=== PATIENT | male | born 1955 | race Caucasian/White ===

== ENCOUNTER 2022-07-04 00:58 | Emergency (ER) | payer MEDICARE, MEDICAID, SELFPAY ==
[2022-07-04] VITALS (11 sets, daily range): BP systolic 116–145; BP diastolic 61–90; PULSE 87–109; RESP 16–24; TEMP 34.4–34.6; O2SAT 89–100
--- NOTE | 2022-07-04 00:59 | ECG_ITS ---
[facility] Test Date: 2022-07-04 Pat Name: Ulysses Linda Department: Room: Gender: Male Personal Carer: : 1955 Requested By: Kishor Grace Order Number: [id number] Lee MD: Yasmani Contreras M.D. Measurements Intervals [place] Rate: 109 P: 28 LA: 130 QRS: 28 QRSD: 97 T: 32 QT: 345 QTc: 466 Interpretive Statements SINUS TACHYCARDIA WITH OCCASIONAL SUPRAVENTRICULAR PREMATURE COMPLEXES POSSIBLE LEFT ATRIAL ENLARGEMENT [-0.1mV P-WAVE IN V1/V2] LEFT VENTRICULAR HYPERTROPHY AND ST-T CHANGE [VOLTAGE CRITERIA PLUS ST/T ABNORMALITY] No previous ECG available for comparison Electronically Signed On 07-04-2022 7:08:00 [employer] by Yasmani Contreras M.D. [id number]
--- NOTE | 2022-07-04 01:00 | XRR_ITS ---
PROCEDURE INFORMATION: Exam: XR Chest Exam date and time: 07/04/2022 1:02 AM Age: 66 years old Clinical indication: Shortness of breath; Patient HX: Resp failure. Arrived via EMS intubated in the field. Unable to obtain further history. ; Additional info: SOB TECHNIQUE: Imaging protocol: Radiologic exam of the chest. Views: 1 view. COMPARISON: No relevant prior studies available. FINDINGS: Tubes, catheters and devices: ETT is in place, the tip is about 4 cm above franklyn. Lungs: Moderate underlying COPD. Diffuse hazy alveolar-interstitial infiltrates with small effusion should be closely followed up. Pleural spaces: No pneumothorax. Heart/Mediastinum: The heart is normal size. Bones/joints: Unremarkable. XR/XR chest 1V portable [id number] IMPRESSION: 1. ETT in place. 2. Hazy areas of bilateral diffuse atelectasis, edema or pneumonia and effusions should be closely followed up. ARDS is also possible. 3. No evidence of pneumothorax.
--- NOTE | 2022-07-04 01:01 | W.ED.SOB ---
HPI - SOB/Dyspnea General: Chief Complaint: Shortness of Breath/Dyspnea Stated Complaint: respiratory distress Time Seen by Provider: 07/04/22 00:59 Source: EMS Mode of arrival: EMS Limitations: physical limitation History of Present Illness: HPI Narrative: 66-year-old male EMS was called out to 4 shortness of breath of the last 2 days they state when they arrived he was in severe distress but he was responsive was able to ambulate out to the ambulance states that his breathing got much worse was never able to get up pulse ox time and intubated him. Per EMS patient never goes to the hospital has no known medical issues he had no known pain no fever patient is currently intubated pulse ox is 96%. Review of Systems General: Reports: ROS unobtainable due to mental status PFSH ED PFSH: Medical History (Updated 07/04/22 @ 03:09 by Kishor Grace MD) No pertinent past medical history Social History (Updated 07/04/22 @ 01:02 by Kishor Grace MD) Substance/Drug Use: never Physical Exam Const: COMMON NORMALS: negative for patient oriented x3 GENERAL APPEARANCE: in distress and ill appearing OTHER: intubated HENMT: COMMON NORMALS: normocephalic and atraumatic HEAD & SCALP: normocephalic and atraumatic Eye: COMMON NORMALS: Equal, round and reactive pupils present and conjunctivae normal CONJUNCTIVA: Yes conjunctivae normal PUPIL: Yes Equal, round and reactive pupils present Neck/C-Spine: COMMON NORMALS: full ROM and supple Chest: COMMONS NORMALS: normal inspection of the chest and normal palpation of entire chest wall Resp: AUSCULTATION: rales OTHER: injubated Cardio: COMMON NORMALS: regular rate, regular rhythm and No murmurs present (Cardio) RATE: regular rate RHYTHM: regular rhythm GI: COMMON NORMALS: Normal to inspection, nondistended, normoactive bowel sounds present, Soft to palpation, non-tender and no masses PALPATION: Yes Soft to palpation Extremity: COMMON NORMALS: normal to inspection and full ROM Neuro: COMMON NORMALS: negative for patient oriented x3 Psych: COMMON NORMALS: negative for mental status grossly normal Skin: COMMON NORMALS: no rashes or lesions noted and no wounds GENERAL SKIN EXAM: no rashes or lesions noted Course Vital Signs: Vital signs: Vital Signs Pulse Rate 96 07/04/22 01:51 Respiratory Rate 16 07/04/22 01:51 Blood Pressure 135/90 07/04/22 01:03 Pulse Oximetry 96 07/04/22 01:51 Oxygen Delivery Me thod 07/04/22 01:51 Fraction of Inspir ed Oxygen 60 07/04/22 01:56 MDM - SOB/Dyspnea Medical Decision Making Patient presents here with respiratory failure he was intubated in the field patient does have an elevated BNP here along with CT that shows pulmonary edema versus pneumonia with pleural effusions no known history on patient per EMS he had not complained of any pain but when they arrived him his pulse ox in the 50s and able to only answer one-word questions he started on antibiotics his hemoglobin is 7 1 I did give him 1 unit of blood giving Lasix as well spoke to ICU physician at [facility] and will transfer there as we have no ICU bed availability here. Lab Data 07/04/22 01:00 07/04/22 01:00 Labs/Radiology: Radiology Impressions Chest X-Ray 07/04/22 01:00 IMPRESSION: 1. ETT in place. 2. Hazy areas of bilateral diffuse atelectasis, edema or pneumonia and effusions should be closely followed up. ARDS is also possible. 3. No evidence of pneumothorax. Chest CTA 07/04/22 01:47 IMPRESSION: 1. No PE. 2. Severe lung infiltrates which may be due to atelectasis, edema, aspiration, pneumonia and/or ARDS. 3. Large bilateral pleural effusions. No pneumothorax. 4. Bulky reactive mediastinal and hilar lymphadenopathy. 5. Underlying COPD with emphysema. 6. Numerous other findings above. For the above described findings, a 1-2 month follow-up is recommended. Laboratory Results WBC 22.4 10^3/uL (4.0-10.0) H 07/04/22 01:00 RBC 3.59 10^6/uL (4.1-5.3) L 07/04/22 01:00 Hgb 7.1 g/dL (11.7-16.6) L 07/04/22 01:00 Hct 26.1 % (42.0-52.0) L 07/04/22 01:00 MCV 72.7 fl (80-94) L 07/04/22 01:00 MCH 19.8 pg (28.0-34.0) L 07/04/22 01:00 MCHC 27.2 g/dL (30.0-36.0) L 07/04/22 01:00 RDW 20.0 % (12.1-15.1) H 07/04/22 01:00 Plt Count 581 10^3/cmm (130-400) H 07/04/22 01:00 MPV 10.4 fL (7.4-10.4) 07/04/22 01:00 Neut % (Auto) 86.6 % 07/04/22 01:00 Lymph % (Auto) 5.1 % 07/04/22 01:00 [place] % (Auto) 6.9 % 07/04/22 01:00 Eos % (Auto) 0.1 % 07/04/22 01:00 Baso % (Auto) 0.1 % 07/04/22 01:00 Neut # (Auto) 19.36 10^3/uL (1.8-7.7) H 07/04/22 01:00 Lymph # (Auto) 1.2 10^3/uL (0.8-4.8) 07/04/22 01:00 [place] # (Auto) 1.5 10^3/uL (0.2-0.9) H 07/04/22 01:00 Eos # (Auto) 0.0 10^3/uL (0.0-0.8) 07/04/22 01:00 Baso # (Auto) 0.0 10^3/uL (0.0-0.1) 07/04/22 01:00 Nucleated RBC % (auto) 0.2 % 07/04/22 01:00 Nucleated RBCs # 0.1 /100WBC 07/04/22 01:00 PT 19.20 SECONDS (12.1-14.9) H 07/04/22 01:00 INR 1.56 (0.8-1.2) H 07/04/22 01:00 Specimen Type Arterial 07/04/22 01:26 Sample Site Radial, left 07/04/22 01:26 ABG pH 7.26 (7.35-7.45) L 07/04/22 01:26 ABG pCO2 43.1 mmHg (35-45) 07/04/22 01:26 ABG pO2 89.5 mmHg (80.0-100.0) 07/04/22 01:26 ABG HCO3 19.3 mmol/L (22-26) L 07/04/22 01:26 ABG Base Excess -7.2 mmol/L (-2.0-2.0) L 07/04/22 01:26 Narciso Test Pos 07/04/22 01:26 Hematocrit 20.0 % (42-52) L 07/04/22 01:26 Hgb O2 Saturation 90.0 % (95-100) L 07/04/22 01:26 Carboxyhemoglobin 3.0 %THgb (0.4-20.1) 07/04/22 01:26 Methemoglobin 0.9 % (0.4-1.5) 07/04/22 01:26 Total Hemoglobin 6.5 g/dL (14-18) L 07/04/22 01:26 O2 Delivery Device Vent 07/04/22 01:26 FiO2 80.0 % 07/04/22 01:26 PEEP 5.0 cmH20 07/04/22 01:26 Instructional Design Technologist ID [email or web address] 07/04/22 01:26 Sodium 129 mmol/L (136-145) L 07/04/22 01:00 Potassium 4.1 mmol/L (3.5-5.1) 07/04/22 01:00 Chloride 90 mmol/L (98-107) L 07/04/22 01:00 Carbon Dioxide 13 mmol/L (22-29) L 07/04/22 01:00 Anion Gap 30.1 (5-19) H 07/04/22 01:00 BUN 23 mg/dL (8-23) 07/04/22 01:00 Creatinine 1.2 mg/dL (0.7-1.2) 07/04/22 01:00 GFR Calculation 60.6 mL/min (90-130) L 07/04/22 01:00 Glucose 114 mg/dL (65-115) 07/04/22 01:00 Calculated Osmolality 273 mOsm/kg (285-295) L 07/04/22 01:00 Lactic Acid 8.1 mmol/L (0.5-2.2) H* 07/04/22 01:25 Calcium 9.8 mg/dL (8.5-10.5) 07/04/22 01:00 Total Bilirubin 0.9 mg/dL (0.15-1.2) 07/04/22 01:00 AST 48 U/L (0-40) H 07/04/22 01:00 ALT 34 U/L (0-41) 07/04/22 01:00 Alkaline Phosphatase 102 U/L (40-130) 07/04/22 01:00 Creatine Kinase 93 U/L (39-308) 07/04/22 01:00 Troponin T Baseline 164 ng/L (0-15) H* 07/04/22 01:00 NT-Pro-B Natriuret Pep 62287 pg/mL (0-125) H 07/04/22 01:00 Total Protein 7.7 g/dL (6.6-8.7) 07/04/22 01:00 Albumin 3.8 g/dL (3.5-5.2) 07/04/22 01:00 Globulin 3.9 g/dL (1.3-4.6) 07/04/22 01:00 Urine Opiates Screen Negative ng/mL (Negative) 07/04/22 01:13 Ur Barbiturates Screen Negative ng/mL (Negative) 07/04/22 01:13 Ur Phencyclidine Scrn Negative ng/mL (Negative) 07/04/22 01:13 Ur Amphetamines Screen Positive ng/mL (Negative) H 07/04/22 01:13 U Benzodiazepines Scrn Negative ng/mL (Negative) 07/04/22 01:13 Urine Cocaine Screen Negative ng/mL (Negative) 07/04/22 01:13 U Marijuana (THC) Screen Negative ng/mL (Negative) 07/04/22 01:13 Influenza Type A Ag negative (Negative) 07/04/22 01:13 Influenza Type B Ag negative (Negative) 07/04/22 01:13 SARS-CoV-2 Ag (Rapid) negative (Negative) 07/04/22 01:13 Blood Type A Positive 07/04/22 01:25 Rho(D) Type Positive 07/04/22 01:25 Antibody Screen Negative 07/04/22 01:25 Crossmatch See Detail 07/04/22 01:25 EKG Data EKG 1: I personally reviewed and interpreted this EKG as follows: EKG Interpretation Date: 07/04/22 EKG interpretation time: 01:03 Interpretation: sinus tach hr [address] or t wave abnormalities qrs 97 qtc 409 Critical Care Time Critical Care Time: Critical Care Time: Yes Total Critical Care Time: 50 Attestation: The high probability of a clinically significant, sudden or life threatening deterioration of the patient's resp system(s) required my full and direct attention, intervention and personal management. The critical care time is as shown. This time is in addition to time spent performing any reported procedures but includes the following: [x] Data and vital sign review and interpretation [x] Patient assessment, examination and intervention [x] Documentation [x] Medication orders and management Discharge Plan Discharge Patient Disposition: Xfer Short-Term Hosp Clinical Impression: Acute respiratory failure with hypoxemia, Community acquired pneumonia, Congestive heart failure, Anemia Coding Level of Care Code ED Damaged Freight Inspector for Simon Webb
[2022-07-04 01:06] LABS: Basophils % 0.1 %; Eosinophils % 0.1 %; Hematocrit 26.1 % (42.0-52.0); Hemoglobin 7.1 g/dL (11.7-16.6); Lymphocytes # 1.2 10^3/uL (0.8-4.8); Lymphocytes % 5.1 %; Mean Corpuscular HGB Conc 27.2 g/dL (30.0-36.0); Mean Corpuscular Hemoglobin 19.8 pg (28.0-34.0); Mean Corpuscular Volume 72.7 fl (80-94); Mean Platelet Volume 10.4 fL (7.4-10.4); Monocytes # 1.5 10^3/uL (0.2-0.9); Monocytes % 6.9 %; Neutrophils # 19.36 10^3/uL (1.8-7.7); Neutrophils % 86.6 %; Nucleated Red Blood Cells # 0.1 /100WBC; Nucleated Red Blood Cells % 0.2 %; Platelet Count 581 10^3/cmm (130-400); Red Blood Count 3.59 10^6/uL (4.1-5.3); White Blood Count 22.4 10^3/uL (4.0-10.0)
[2022-07-04 01:21] LABS: INR 1.56 (0.8-1.2)
[2022-07-04 01:27] LABS: Creatine Phosphokinase 93 U/L (39-308)
[2022-07-04 01:37] LABS: Alanine Aminotransferase 34 U/L (0-41); Albumin Level 3.8 g/dL (3.5-5.2); Alkaline Phosphatase 102 U/L (40-130); Anion Gap 30.1 (5-19); Aspartate Amino Transferase 48 U/L (0-40); Blood Urea Nitrogen 23 mg/dL (8-23); Calcium 9.8 mg/dL (8.5-10.5); Carbon Dioxide 13 mmol/L (22-29); Chloride 90 mmol/L (98-107); Globulin 3.9 g/dL (1.3-4.6); Glomerular Filtration Rate 60.6 mL/min (90-130); Glucose 114 mg/dL (65-115); NT Pro B Type Natriuretic Pept 19005 pg/mL (0-125); Osmolality Calculated 273 mOsm/kg (285-295); Potassium 4.1 mmol/L (3.5-5.1); Sodium 129 mmol/L (136-145); Total Bilirubin 0.9 mg/dL (0.15-1.2); Total Protein 7.7 g/dL (6.6-8.7)
[2022-07-04 01:38] LABS: ABG PCO2 43.1 mmHg (35-45); ABG PH Result 7.26 (7.35-7.45); Base Excess ABG -7.2 mmol/L (-2.0-2.0); Blood Gas Allen Test Pos; Blood Gas Sample Site Radial, left; Blood Gas Sample Type Arterial; HCO3 ABG 19.3 mmol/L (22-26); Methemoglobin 0.9 % (0.4-1.5); Oxygen Device VENT; PO2 ABG 89.5 mmHg (80.0-100.0); Total Hemoglobin 6.5 g/dL (14-18)
[2022-07-04 01:45] LABS: Influenza A by IFA negative (Negative); Influenza B by IFA negative (Negative); SARS Covid-2 Antigen negative (Negative)
--- NOTE | 2022-07-04 01:47 | CTR_ITS ---
PROCEDURE INFORMATION: Exam: CTA Chest With Contrast Exam date and time: 07/04/2022 2:15 AM Age: 66 years old Clinical indication: Shortness of breath; Patient HX: Resp failure. Intubated in the field by EMS. Base troponin of 164. Bnp of 19k. ; Additional info: SOB TECHNIQUE: Imaging protocol: Computed tomographic angiography of the chest with contrast. 3D rendering (Not supervised by radiologist): MIP and/or 3D reconstructed images were created by the technologist. Radiation optimization: All CT scans at this facility use at least one of these dose optimization techniques: automated exposure control; mA and/or kV adjustment per patient size (includes targeted exams where dose is matched to clinical indication); or iterative reconstruction. Contrast material: OMNI 350; Contrast volume: 64 ml; Contrast route: INTRAVENOUS (IV); Other protocol: This patient has received 0 known CTs and 0 known cardiac nuclear medicine studies in the 12 months prior to the current study. COMPARISON: CR (CHEST, ) 07/04/2022 1:02 AM RADIATION DOSE METRICS: Total DLP (mGy-cm): 410.48 FINDINGS: Tubes, catheters and devices: ETT is in place. Tip is about 4 cm above franklyn. Pulmonary arteries: No main, lobar, or segmental PE identified. Aorta: Unremarkable. No aortic aneurysm. No aortic dissection. Lungs: Large areas of bilateral severe hazy alveolar-interstitial infiltrate are seen with areas of patchy consolidation. Underlying advanced COPD with bronchiectatic changes and diffuse lung interstitial scarring. Pleural spaces: Large oxzdm-mmjqzls-jooj-left pleural effusions. No pneumothorax. Heart: The heart is large. No pericardial effusion. Lymph nodes: Moderate likely reactive bulky mediastinal and hilar lymphadenopathy. Nodes measure up to about 3 cm. Liver: Large and nodular/cirrhotic appearing liver. Kidneys and ureters: Tiny right kidney stone. Bones/joints: Moderate spine DJD. Soft tissues: Unremarkable. CT/CT angio chest PE protcl [id number] IMPRESSION: 1. No PE. 2. Severe lung infiltrates which may be due to atelectasis, edema, aspiration, pneumonia and/or ARDS. 3. Large bilateral pleural effusions. No pneumothorax. 4. Bulky reactive mediastinal and hilar lymphadenopathy. 5. Underlying COPD with emphysema. 6. Numerous other findings above. For the above described findings, a 1-2 month follow-up is recommended.
[2022-07-04] MEDS: albuterol 2.5 mg/3 mL Neb INHALATION (01:50)
[2022-07-04] MEDS: sodium chloride 0.9% 1,000 ML 999 ML IV (01:51)
[2022-07-04] MEDS: FUROsemide 10 mg/mL SDV 4mL 40 MG IVP (01:57)
[2022-07-04 02:11] LABS: Troponin(5th) Baseline 164 ng/L (0-15)
[2022-07-04] MEDS: iohexol 350 mg/mL 500 mL Btl (per mL) IV (02:23)
[2022-07-04] MEDS: vancomycin 1,000 MG in sodium chloride 0.9% 250 ML 250 MG IV (02:35)
[2022-07-04] MEDS: piperacillin-tazobactam 3.375 GM in sodium chloride 0.9% (plus) 50 ML IV (02:35)
[2022-07-04 02:44] LABS: Lactic Sepsis W/Reflex 8.1 mmol/L (0.5-2.2)
[2022-07-04] MEDS: propofol 1,000 MG/100 ML INJ 1.89 MG IV (02:57)
[2022-07-04 03:01] LABS: Amphetamines Screen Urine Positive (Negative); Barbiturates Screen Urine Negative (Negative); Benzodiazepines Screen Urine Negative (Negative); Cocaine Screen Urine Negative (Negative); Opiate Screen Urine Negative (Negative); PCP Screen Urine Negative (Negative); THC Screen Urine Negative (Negative)
[2022-07-04 03:15] LABS: Reflex Lactate Order REFLEX LACTIC ORDERD
[2022-07-04 03:19] LABS: Add Urine Microscopic? YES; Bilirubin Urine Neg (Negative); Blood Urine Neg (Negative); Glucose Urine UA Norm (Normal); Ketones Urine 1+ (Negative); Leukocyte Esterase Urine Negative (Negative); Nitrate Urine Negative (Negative); Protein Urine 1+ (Negative); Specific Gravity, Urine 1.025 (1.005-1.030); Urine Appearance Clear (CLEAR); Urine Color Dark Yellow (Yellow); Urobilinogen Urine 1 mg/dL (Negative); pH Urine 5 (5-7)
[2022-07-04 03:20] LABS: Add Urine Culture? No; Amorphous Sediment Urine 1+ /hpf; Bacteria Urine TRACE /hpf; RBC Urine 0-4 /hpf (0-2); Renal Epithelial Cells Urine 0-2 /hpf; Squamous Epithelial Cell Urine 0-4 /hpf (0-5); WBC Urine 0-4 /hpf (0-5)
[2022-07-04 03:32] LABS: Troponin 5 2HR 128.3 ng/L (0-15); Troponin 5 2HR Delta -35.7 ABS# (0-10)
[2022-07-04] MEDS: sodium chloride 0.9% 250 ML IV (03:38)
[2022-07-04 03:39] LABS: Lactic Acid level (Lactate) 3.4 mmol/L (0.5-2.2)
[2022-07-04] MEDS: enoxaparin 60 mg/0.6 mL Syringe SUBCUT (03:40)
--- NOTE | 2022-07-04 04:38 | PC.NURSE ---
Attempted to call , Anali, x2 to inform of patient departing at this time. Went straight to automated message 'unavailable'
== END 2022-07-04 04:57 | disposition short-term general hospital (02) ==
PROVIDERS: Emergency Provider Emergency Medicine
DX: J96.01 Acute respiratory failure with hypoxia (principal); J44.0 Chronic obstructive pulmonary disease with (acute) lower respiratory infection; J18.9 Pneumonia, unspecified organism; D64.9 Anemia, unspecified; I11.0 Hypertensive heart disease with heart failure; I50.9 Heart failure, unspecified; Z20.822 Contact with and (suspected) exposure to COVID-19
CPT/HCPCS: 36430; 36600; 51702; 71045; 71275; 80053; 80306; 81001; 82550; 82805; 83605; 83880; 84484; 85025; 85610; 86850; 86900; 86920; 87040; 87070; 87205; 87426; 87804; 93005; 94002; 94640; 94799; 96365; 96366; 96367; 96372; 96375; 99291; J1650; J1940; J2543; J2704; J2930; J3010; J3370; J7030; J7050; J7613; P9016; Q9967

== ENCOUNTER 2024-04-15 13:54 | Inpatient (IN) | payer MEDICARE, MEDICAID, SELFPAY ==
[2024-04-15] VITALS (29 sets, daily range): BP systolic 104–160; BP diastolic 65–97; PULSE 101–130; RESP 10–40; TEMP 36.4–37.2; O2SAT 86–100
--- NOTE | 2024-04-15 14:10 | XR_ITS ---
WS: [id number] Exam: XR chest 1V portable [id number] Date/Time of Exam: 04/15/2024 2:19 PM Reason For Exam: dyspnea/cough Comparison 07/04/2022. Widespread interstitial and alveolar infiltrates are noted. Heart size top limits normal. The mediast inum is normal in contour. No pleural effusion or pneumothorax. Bony structures are intact. XR/XR chest 1V portable [id number] IMPRESSION: 1. Extensive bilateral interstitial and alveolar infiltrates. Interstitial pneu monia or pulmonary edema cannot be excluded however there is likely significant chronic interstitial change present. Short-term radiographic follow-up recomme nded.
--- NOTE | 2024-04-15 14:16 | ED_ITS ---
HPI - SOB/Dyspnea 2 General: Chief Complaint: Shortness of Breath/Dyspnea Stated Complaint: Resp Distrss Time Seen by Provider: 04/15/24 14:00 History of Present Illness: HPI Narrative: 68-[facility]. Patient is very lethargic patient has significant increased work of breathing. He usually wears oxygen but was not on it initially. On arrival here he was on nonrebreather at 10 L/min satting 86%. He denies chest pain or abdominal pain. He seems mildly confused. He was hospitalized in June 2022 at that time he came in in acute respiratory distress and was transferred due to lack of available beds at our facility Associated symptoms: Reports chest congestion; Deny abdominal pain, chest pain or fever(s) Related Data Home Medications Medication Instructions Recorded Confirmed albuterol sulfate 90 mcg/actuation 1 puff inhalation Q6H PRN 04/15/24 04/15/24 aerosol inhaler (Ventolin HFA) Shortness Of Breath Or Wheezing aspirin 81 mg tablet,delayed 81 mg PO DAILY 04/15/24 04/15/24 release atorvastatin 40 mg tablet 40 mg PO BEDTIME 04/15/24 04/15/24 clopidogrel 75 mg tablet 75 mg PO DAILY 04/15/24 04/15/24 fluticasone 250 mcg-salmeterol 50 1 inh inhalation BID 04/15/24 04/15/24 mcg/dose blistr powdr for inhalation furosemide 40 mg tablet 40 mg PO QAM 04/15/24 04/15/24 metoprolol tartrate 25 mg tablet 25 mg PO BID 04/15/24 04/15/24 nitroglycerin 0.4 mg sublingual See Rx Instructions .Route .COMPLEX 04/15/24 04/15/24 tablet pantoprazole 40 mg tablet,delayed 40 mg PO BID 04/15/24 04/15/24 release potassium chloride 20 mEq 40 meq PO DAILY 04/15/24 04/15/24 tablet,extended release(part/cryst) sacubitril 24 mg-valsartan 26 mg 1 tab PO BID 04/15/24 04/15/24 tablet (Entresto) sucralfate 100 mg/mL oral 10 ml PO Q12H 04/15/24 04/15/24 suspension sulfamethoxazole 800 1 tab PO DAILY 04/15/24 04/15/24 mg-trimethoprim 160 mg tablet Allergies Allergy/AdvReac Type Severity Reaction Status Date / Time No Known Allergies Allergy Verified 07/04/22 02:36 Review of Systems 2 Const: Reports: malaise; Denies: fever(s) or chills Card: Denies: chest pain Resp: Reports: dyspnea, wheezing and chest congestion GI: Denies: abdominal pain : Denies: dysuria, urinary frequency or urinary urgency Musc: Denies: neck pain or back pain Skin/Breast: Denies: rash PFSH ED 2 PFSH: Medical History COPD (chronic obstructive pulmonary disease) No pertinent past medical history Social History Substance/Drug Use: never Physical Exam 2 Const: GENERAL APPEARANCE: in distress and frail appearing O RIENTATION/CONSCIOUSNESS: Yes awake and Yes confused HENMT: COMMON NORMALS: normocephalic, atraumatic and hearing grossly normal bilaterally HEAD & SCALP: normocephalic and atraumatic Resp: EFFORT & INSPECTION: No able to speak in complete sentences, Yes respiratory distress, Yes labored, Yes uses accessory muscles and Yes audible wheezes AUSCULTATION: rhonchi and wheezes Cardio: COMMON NORMALS: regular rate, regular rhythm and No murmurs present (Cardio) RATE: regular rate RHYTHM: regular rhythm GI: COMMON NORMALS: Soft to palpation and No hepatosplenomegaly present A USCULTATION: Yes normoactive bowel sounds PALPATION: Yes Soft to palpation, No Tenderness to palpation present (GI), No Guarding due to palpation present (GI) and Yes No hepatosplenomegaly present Extremity: COMMON NORMALS: normal to inspection, capillary refill normal, no clubbing, cyanosis or edema, no calf tenderness and no pedal edema Skin: COMMON NORMALS: no rashes or lesions noted GENERAL SKIN EXAM: no rashes or lesions noted Course 2 Vital Signs: Vital signs: Vital Signs Temperature 97.0 F L 04/17/24 00:00 Pulse Rate 93 04/17/24 03:30 Respiratory Rate 23 H 04/17/24 03:30 Blood Pressure 84/53 04/17/24 03:30 Pulse Oximetry 94 04/17/24 03:30 Oxygen Delivery Me thod Heated High Flow 04/17/24 03:30 Oxygen Flow Rate 60 04/17/24 03:30 Fraction of Inspir ed Oxygen 60 04/17/24 02:05 MDM - SOB/Dyspnea Medical Decision Making Patient in severe respiratory distress on arrival with hypoxia improved with oxygen supplementation. He was started on BiPAP for work of breathing. Imaging shows the patient does not have a PE but does have significant interstitial pneumonia admission. He started on IV antibiotics. His troponin is elevated suspect this may be heart strain due to his overall condition suspect he has some underlying congestive heart failure. Reviewing his labs he also has some hepatic congestion from the heart failure which likely accounts for his transaminitis. He is also significantly anemic. He has been started on antibiotics discussed with hospitalist will admit. Medical Records I reviewed the patient's medical records. Lab Data I reviewed the patient's lab results. 04/17/24 03:07 04/17/24 03:07 Labs/Radiology: Radiology Impressions Chest X-Ray 04/15/24 14:10 IMPRESSION: 1. Extensive bilateral interstitial and alveolar infiltrates. Interstitial pneumonia or pulmonary edema cannot be excluded however there is likely significant chronic interstitial change present. Short-term radiographic follow- up recommended. Chest CTA 04/15/24 15:34 IMPRESSION: Diffuse extensive interstitial lung disease. I favor this to represent acute interstitial pneumonia superimposed upon some degree of chronic interstitial fibrosis Modified Barium Swallow 04/16/24 17:57 IMPRESSION: 1. No aspiration or penetration identified. A separate report with recommendations will follow from the speech therapy service. Laboratory Results WBC 14.88 10^3/uL (3.29-11.43) H 04/15/24 14:50 RBC 2.94 10^6/uL (3.85-5.65) L 04/15/24 14:50 Hgb 7.40 g/dL (11.27-16.99) L 04/15/24 14:50 Hct 25.7 % (37-53) L 04/15/24 14:50 MCV 87.4 fl (82-101) 04/15/24 14:50 MCH 25.2 pg (27-33) L 04/15/24 14:50 MCHC 28.8 g/dL (30-55) L 04/15/24 14:50 RDW 30.6 % (12.1-15.1) H 04/15/24 14:50 Plt Count 312 10^3/cmm (157-399) 04/15/24 14:50 MPV 9.8 fL (7.4-10.4) 04/15/24 14:50 Neut % (Auto) 84.9 % 04/15/24 14:50 Lymph % (Auto) 6.3 % 04/15/24 14:50 [place] % (Auto) 7.5 % 04/15/24 14:50 Eos % (Auto) 0.2 % 04/15/24 14:50 Baso % (Auto) 0.2 % 04/15/24 14:50 Neut # (Auto) 12.63 10^3/uL (1.8-7.7) H 04/15/24 14:50 Lymph # (Auto) 0.9 10^3/uL (0.8-4.8) 04/15/24 14:50 [place] # (Auto) 1.1 10^3/uL (0.2-0.9) H 04/15/24 14:50 Eos # (Auto) 0.0 10^3/uL (0.0-0.8) 04/15/24 14:50 Baso # (Auto) 0.0 10^3/uL (0.0-0.1) 04/15/24 14:50 Nucleated RBC % (auto) 0 % 04/15/24 14:50 Nucleated RBCs # 0.0 /100WBC 04/15/24 14:50 D-Dimer 1.68 ug/mLFEU (0-0.59) H 04/15/24 14:50 Specimen Type Arterial 04/15/24 14:10 Sample Site Brachial, left 04/15/24 14:10 ABG pH 7.39 (7.35-7.45) 04/15/24 14:10 ABG pCO2 23.7 mmHg (35-45) L 04/15/24 14:10 ABG pO2 105.0 mmHg (80.0-100.0) H 04/15/24 14:10 ABG PO2/FiO2 Ratio 161 04/15/24 14:10 ABG HCO3 14.2 mmol/L (22-26) L 04/15/24 14:10 ABG O2 Saturation 98.5 04/15/24 14:10 ABG Base Excess -9.7 mmol/L (-2.0-2.0) L 04/15/24 14:10 Narciso Test N/a 04/15/24 14:10 A-a O2 Gradient 41.6 mmHg (5-10) H 04/15/24 14:10 Hematocrit 24.0 % (42-52) L 04/15/24 14:10 Hgb O2 Saturation 95.2 % (95-100) 04/15/24 14:10 Carboxyhemoglobin 2.2 %THgb (0.4-20.1) 04/15/24 14:10 Methemoglobin 1.2 % (0.4-1.5) 04/15/24 14:10 Total Hemoglobin 7.8 g/dL (14-18) L 04/15/24 14:10 Sodium 140.0 mmol/L (131-143) 04/15/24 14:10 Potassium 3.9 mmol/L (3.5-5.0) 04/15/24 14:10 Glucose 145.0 mg/dL (70-115) H 04/15/24 14:10 Ionized Calcium 1.2 mmol/L (1.1-1.4) 04/15/24 14:10 O2 Delivery Device Bipap 04/15/24 14:10 FiO2 65.0 % 04/15/24 14:10 Cement Mason Maintenance ID glc 04/15/24 14:10 Sodium 139 mmol/L (136-145) 04/15/24 15:24 Potassium 4.2 mmol/L (3.5-5.1) 04/15/24 15:24 Chloride 101 mmol/L (98-107) 04/15/24 15:24 Carbon Dioxide 16 mmol/L (22-29) L 04/15/24 15:24 Anion Gap 26.2 (5-19) H 04/15/24 15:24 BUN 31 mg/dL (8-23) H 04/15/24 15:24 Creatinine 1.2 mg/dL (0.7-1.2) 04/15/24 15:24 GFR Calculation 60.2 mL/min (90-130) L 04/15/24 15:24 Glucose 156 mg/dL (65-115) H 04/15/24 15:24 Calculated Osmolality 298 mOsm/kg (285-295) H 04/15/24 15:24 Lactic Acid Cancelled 04/15/24 14:50 Lactic Acid (Sepsis) 9.5 mmol/L (0.5-2.2) H* 04/15/24 15:24 Calcium 8.5 mg/dL (8.5-10.5) 04/15/24 15:24 Magnesium 1.9 mg/dL (1.7-2.3) 04/15/24 15:24 Total Bilirubin 0.9 mg/dL (0.15-1.2) 04/15/24 15:24 AST 343 U/L (0-40) H 04/15/24 15:24 ALT 251 U/L (0-41) H 04/15/24 15:24 Alkaline Phosphatase 123 U/L (40-130) 04/15/24 15:24 Creatine Kinase 189 U/L (39-308) 04/15/24 15:24 Troponin T Baseline 548 ng/L (0-15) H* 04/15/24 15:24 Troponin T 120 Minute 639.1 ng/L (0-15) H 04/15/24 17:35 Delta Troponin T 91.1 ABS# (0-10) H* 04/15/24 17:35 Total Protein 6.1 g/dL (6.6-8.7) L 04/15/24 15:24 Albumin 3.3 g/dL (3.5-5.2) L 04/15/24 15:24 Globulin 2.8 g/dL (1.3-4.6) 04/15/24 15:24 Hepatitis A IgM Ab Non-reactive (Nonreactive) 04/15/24 15:44 Hep Bs Antigen Non-reactive (Nonreactive) 04/15/24 15:44 Hep B Core IgM Ab Non-reactive (Nonreactive) 04/15/24 15:44 Hepatitis C Antibody Non-reactive (Nonreactive) 04/15/24 15:44 All radiology interpretation(s) finalized by discharge Critical Care Time 2 Critical Care Time: Critical Care Time: Yes Total Critical Care Time: 40 Attestation: The high probability of a clinically significant, sudden or life threatening deterioration of the patient's cardiovascular respiratory system(s) required my full and direct attention, intervention and personal management. The critical care time is as shown. This time is in addition to time spent performing any reported procedures but includes the following: [x] Data and vital sign review and interpretation [x] Patient assessment, examination and intervention [x] Documentation [x] Medication orders and management Discharge Plan Discharge Patient Disposition: Admitted As Inpatient Admit Provider: Johan Wray Clinical Impression: Acute and chronic respiratory failure with hypoxia, Transaminitis, Lactic acidosis, Acute interstitial pneumonia, Acute exacerbation of chronic obstructive airways disease, Elevated troponin I level, Anemia Condition: Coding Level of Care Code ED Chemist Intern for Simon Webb
[2024-04-15] MEDS: ipratropium-albuterol 3 mL Neb INHALATION ×2 (14:34→20:02)
[2024-04-15] MEDS: dexamethasone 10 mg/mL INJ IM (14:37)
[2024-04-15 14:45] LABS: ABG PCO2 23.7 mmHg (35-45); ABG PH Result 7.39 (7.35-7.45); Alveolar-Arterial Oxygen Gradi 41.6 mmHg (5-10); Base Excess ABG -9.7 mmol/L (-2.0-2.0); Blood Gas Operator Identificat glc; Blood Gas Sample Site Brachial, left; Blood Gas Sample Type Arterial; Carboxyhemoglobin 2.2 %THgb (0.4-20.1); HCO3 ABG 14.2 mmol/L (22-26); HGB O2 Sat 95.2 % (95-100); Ionized Calcium Level - ABG 1.2 mmol/L (1.1-1.4); Methemoglobin 1.2 % (0.4-1.5); Oxygen Device BIPAP; Oxygen Saturation ABG 98.5; PO2 FiO2 Ratio Arterial Blood 161; Potassium Level - ABG 3.9 mmol/L (3.5-5.0); Total Hemoglobin 7.8 g/dL (14-18)
--- NOTE | 2024-04-15 14:53 | ECG_ITS ---
[facility] Test Date: 2024-04-15 Pat Name: Ulysses Linda Department: Room: Gender: Male Assembler Tester: : 1955 Requested By: Checo Chan Order Number: [id number] Reading MD: KATHLEEN JAQUEZ Measurements Intervals [place] Rate: 122 P: 47 LA: 127 QRS: 3 QRSD: 87 T: 47 QT: 285 QTc: 407 Interpretive Statements SINUS TACHYCARDIA NONSPECIFIC ST & T-WAVE ABNORMALITY ABNORMAL RHYTHM ECG Compared to ECG 07/04/2022 01:03:55 T-wave abnormality now present Left ventricular hypertrophy no longer present ST (T wave) deviation no longer present Electronically Signed On 04-16-2024 17:28:42 SURGERY CENTER ADMINISTRATOR by KATHLEEN JAQUEZ [id number]
[2024-04-15] MEDS: FUROsemide 10 mg/mL SDV 10mL 60 MG IVP (15:03)
[2024-04-15 15:11] LABS: Basophils % 0.2 %; Eosinophils % 0.2 %; Hematocrit 25.7 % (37-53); Lymphocytes # 0.9 10^3/uL (0.8-4.8); Lymphocytes % 6.3 %; Mean Corpuscular HGB Conc 28.8 g/dL (30-55); Mean Corpuscular Hemoglobin 25.2 pg (27-33); Mean Corpuscular Volume 87.4 fl (82-101); Mean Platelet Volume 9.8 fL (7.4-10.4); Monocytes # 1.1 10^3/uL (0.2-0.9); Monocytes % 7.5 %; Neutrophils # 12.63 10^3/uL (1.8-7.7); Neutrophils % 84.9 %; Nucleated Red Blood Cells % 0 %; Platelet Count 312 10^3/cmm (157-399); Red Blood Count 2.94 10^6/uL (3.85-5.65); Red Cell Distribution Width 30.6 % (12.1-15.1); White Blood Count 14.88 10^3/uL (3.29-11.43)
[2024-04-15 15:16] LABS: D Dimer 1.68 ug/mLFEU (0-0.59); Slide Review Slide Review Perform
--- NOTE | 2024-04-15 15:34 | CTR_ITS ---
PROCEDURE INFORMATION: Exam: CTA Chest With Contrast Exam date and time: 04/15/2024 4:26 PM Age: 68 years old Clinical indication: Dyspnea; Additional info: Dyspnea tachycardia TECHNIQUE: Imaging protocol: Computed tomographic angiography of the chest with contrast. Exam focused on the arteries. 3D rendering (Not supervised by radiologist): MIP and/or 3D reconstructed images were created by the technologist. Radiation optimization: All CT scans at this facility use at least one of these dose optimization techniques: automated exposure control; mA and/or kV adjustment per patient size (includes targeted exams where dose is matched to clinical indication); or iterative reconstruction. Contrast material: OMNIPAQUE 350; Contrast volume: 80 ml; Contrast route: INTRAVENOUS (IV); COMPARISON: CT angio chest PE protcl [id number] 07/04/2022 2:15 AM RADIATION DOSE METRICS: Total DLP (mGy-cm): 219.54 FINDINGS: Pulmonary arteries: Normal. No pulmonary emboli. Aorta: Unremarkable. No aortic aneurysm. No aortic dissection. Lungs: Both lungs demonstrate diffuse interstitial infiltrate that appears to be evenly distributed between upper and lower lobes zones. I see no dense consolidation or mass. Pleural spaces: Unremarkable. No pneumothorax. No pleural effusion. Heart: Unremarkable. No cardiomegaly. No pericardial effusion. Lymph nodes: Unremarkable. No enlarged lymph nodes. Bones/joints: Unremarkable. No acute fracture. Soft tissues: Unremarkable. CT/CT angio chest PE protcl [id number] IMPRESSION: Diffuse extensive interstitial lung disease. I favor this to represent acute interstitial pneumonia superimposed upon some degree of chronic interstitial fibrosis
--- NOTE | 2024-04-15 15:39 | PC.PHAR ---
Pt is on bipap. Med rec completed from current med list filled here at [facility] Main pharmacy. last fill dates and days supply entered in pharmacy notes.
[2024-04-15 15:50] LABS: Alanine Aminotransferase 251 U/L (0-41); Albumin Level 3.3 g/dL (3.5-5.2); Alkaline Phosphatase 123 U/L (40-130); Anion Gap 26.2 (5-19); Aspartate Amino Transferase 343 U/L (0-40); Blood Urea Nitrogen 31 mg/dL (8-23); Calcium 8.5 mg/dL (8.5-10.5); Carbon Dioxide 16 mmol/L (22-29); Chloride 101 mmol/L (98-107); Creatine Phosphokinase 189 U/L (39-308); Globulin 2.8 g/dL (1.3-4.6); Glomerular Filtration Rate 60.2 mL/min (90-130); Glucose 156 mg/dL (65-115); Magnesium 1.9 mg/dL (1.7-2.3); Osmolality Calculated 298 mOsm/kg (285-295); Potassium 4.2 mmol/L (3.5-5.1); Sodium 139 mmol/L (136-145); Total Bilirubin 0.9 mg/dL (0.15-1.2); Total Protein 6.1 g/dL (6.6-8.7); Troponin(5th) Baseline 548 ng/L (0-15)
[2024-04-15 16:12] LABS: Lactic Acid level (Lactate) 9.5 mmol/L (0.5-2.2)
[2024-04-15] MEDS: iohexol 350 mg/mL 500 mL Btl (per mL) IV (16:33)
[2024-04-15] MEDS: levofloxacin-dextrose 5 % 750 MG/150 ML PREMIX 100 MG IV (16:46)
--- NOTE | 2024-04-15 16:59 | ECG_ITS ---
[facility] Date: 2024-04-15 Pat Name: Ulysses Linda Department: Room: Gender: Male Grey Percher: : 1955 Requested By: Checo Chan Order Number: [id number] Reading MD: KATHLEEN JAQUEZ Measurements Intervals [place] Rate: 132 P: 54 VT: 113 QRS: 4 QRSD: 94 T: 54 QT: 260 QTc: 386 Interpretive Statements SINUS TACHYCARDIA WITH SHORT VT INTERVAL WITH OCCASIONAL VENTRICULAR PREMATURE COMPLEXES LEFT VENTRICULAR HYPERTROPHY AND ST-T CHANGE [VOLTAGE CRITERIA PLUS ST/T ABNORMALITY] Compared to ECG 04/15/2024 14:53:50 Ventricular premature complex(es) now present Short VT interval now present Left ventricular hypertrophy now present ST (T wave) deviation now present T-wave abnormality no longer present Electronically Signed On 04-16-2024 18:10:36 HIGH SCHOOL COACH by KATHLEEN JAQUEZ [id number]
--- NOTE | 2024-04-15 17:44 | ECG_ITS ---
[facility] Test Date: 2024-04-15 Pat Name: Ulysses Linda Department: Room: Gender: Male Seam Checker: : 1955 Requested By: Checo Chan Order Number: [id number] Reading MD: KATHLEEN JAQUEZ Measurements Intervals [place] Rate: 128 P: 65 SC: 96 QRS: 14 QRSD: 92 T: 32 QT: 262 QTc: 382 Interpretive Statements SINUS TACHYCARDIA WITH SHORT SC INTERVAL WITH OCCASIONAL VENTRICULAR PREMATURE COMPLEXES LEFT VENTRICULAR HYPERTROPHY AND ST-T CHANGE [VOLTAGE CRITERIA PLUS ST/T ABNORMALITY] Compared to ECG 04/15/2024 16:59:16 No significant changes Electronically Signed On 04-16-2024 18:10:24 INDUSTRIAL CUSTODIAN by KATHLEEN JAQUEZ [id number]
[2024-04-15] MEDS: enoxaparin 80 mg/0.8 mL Syringe 70 MG SUBCUT (18:12)
[2024-04-15 18:16] LABS: Troponin 5 2HR 639.1 ng/L (0-15); Troponin 5 2HR Delta 91.1 ABS# (0-10)
--- NOTE | 2024-04-15 18:32 | PC.NURSE ---
Addendum entered by Aydee Ramos RN 04/15/24 18:47: PATIENT STATES THAT HE IS THIRSTY. NURSE EXPLAINS THAT WE ARE GETTING READY TO TAKE PATIENT TO ICU AND BIPAP WOULD BE REMOVED AND HE WOULD BE ABLE TO DRINK FOR A FEW MINUTES DURING THAT TIME. PATIENT VERBALIZED UNDERSTANDING. PATIENT ASKED IF HE HAD ANY FURTHER NEEDS BEFORE ARRIVAL TO ICU. PATIENT DENIES NEEDS. PATIENT URINAL AT BEDSIDE, UA COLLECTED AND URINAL EMPTIED. PATIENT MADE COMFORTABLE IN BED. Original Note: PATIENT STATE
--- NOTE | 2024-04-15 18:44 | USCV_ITS ---
Ulysses Linda Age: 68 Gender: M : 1955 Exam Date: 04/15/2024 21:00 Ordering Phys: Johan Wray MD Technologist: OLIVER [place] [facility] [place] nstemi SOB, O2-dependent presenting ER with hypoxia 86% BP: 160 / 91 HR: 99 Rhythm: Sinus Technical Quality: Adequate MEASUREMENTS (Male / Female) Normal Values 2D ECHO LV Diastolic Diameter PLAX 4.3 cm 4.2 - 5.9 / 3.9 - 5.3 cm IVS Diastolic Thickness 1.3 cm 0.6 - 1.0 / 0.6 - 0.9 cm IVS Systolic Thickness 1.5 cm LVPW Diastolic Thickness 1.2 cm 0.6 - 1.0 / 0.6 - 0.9 cm LVPW Systolic Thickness 1.3 cm LVOT Diameter 1.9 cm LV Ejection Fraction 2D Teich 36.0 % LV Ejection Fraction MOD 4C 14.7 % LV Ejection Fraction MOD 2C 34.2 % LV Ejection Fraction 2C AL 35.1 % LA Diameter 3.2 cm Aorta at Sinotubular Diameter 2.6 cm IVC Diameter 2.1 cm M-MODE LA Ao Ratio MM 1.0 AV Cusp Separation MM 0.8 cm DOPPLER AV Peak Velocity 263.3 cm/s LVOT Peak Velocity 59.0 cm/s AV Area Cont Eq vti 0.4 cm squared AV Area Cont Eq pk 0.6 cm squared MV Peak Velocity 79.0 cm/s MV Area PHT 5.6 cm squared Mitral E to A Ratio 1.0 TV Peak Velocity 289.3 cm/s TR Peak Velocity 402.0 cm/s TR Peak Gradient 64.6 mmHg TV Peak E Velocity 47.0 cm/s Right Atrial Pressure 10.0 mmHg Pulmonary Artery Systolic Pressu 74.6 mmHg PV Peak Velocity 62.0 cm/s FINDINGS Left Ventricle Diffuse hypokinesia of the left ventricle with an ejection fraction of around 30%.mild left ventricular hypertrophy. Right Ventricle The right ventricle is normal in size and function. Right Atrium The right atrium is normal in size. Left Atrium Mildly increased left atrial size. Mitral Valve Mild mitral annular calcification. Mild mitral valve regurgitation. Aortic Valve Moderate aortic valve calcification. Mild aortic valve regurgitation. Severe low gradient aortic valve stenosis, mean gradient 15.3 mmHg, MARGA 0.4 cm squared. Tricuspid Valve Moderate eccentric tricuspid valve regurgitation. Moderately severe pulmonary hypertension with an estimated pulmonary artery peak systolic pressure of 75 mmHg Pulmonic Valve Pulmonic valve not well visualized. Pericardium Normal pericardium without effusion. Aorta Normal ascending aorta dimension. IVC Normal IVC dimension with <50% respiratory change of the inferior vena cava. CONCLUSIONS Diffuse hypokinesia of the left ventricle with an ejection fraction of around 30%.( visual). Mild left ventricular hypertrophy. Mildly increased left atrial size. Type II diastolic dysfunction. Moderate aortic valve calcification. Mild aortic valve regurgitation. Severe low gradient aortic valve stenosis, mean gradient 15.3 mmHg, MARGA 0.4 cm squared Moderate eccentric tricuspid valve regurgitation. Moderately severe pulmonary hypertension with an estimated pulmonary artery peak systolic pressure of 75 mmHg Mild mitral annular calcification. Mild mitral valve regurgitation. No similar previous studies are available for comparison Dr Jeffrey Hollingsworth MD [facility] (Electronically Signed) Final Date: 17 April 2024 07:00 S
[2024-04-15 18:58] LABS: Bilirubin Urine Negative (Negative); Blood Urine Negative (Negative); Glucose Urine UA Negative (Normal); Ketones Urine Negative (Negative); Leukocyte Esterase Urine Negative (Negative); Nitrate Urine Negative (Negative); Protein Urine Negative (Negative); Specific Gravity, Urine 1.011 (1.005-1.030); Urine Appearance Clear (CLEAR); Urine Color Yellow (Yellow); pH Urine 6.5 (5-7)
[2024-04-15 19:01] LABS: Add Urine Microscopic? YES; Bacteria Urine None Seen /hpf; Hyaline Casts Urine 18.61 /lpf; RBC Urine 0-2 /hpf (0-2); Squamous Epithelial Cell Urine 0-5 /hpf (0-5); WBC Urine 0-5 /hpf (0-5)
[2024-04-15 19:03] LABS: Add Urine Culture? No; UA Slide Review UA Slide Review Perf
--- NOTE | 2024-04-15 19:06 | P.HP_ITS ---
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 He is found to have sinus tachycardia, lactic acid of 9.5, with tachypnea in the 30s-40s, as well as baseline troponin 548. Chest x-ray and CTA were obtained. Chest CTA without PE, with diffuse extensive interstitial lung disease, favoring presentation of interstitial pneumonia superimposed on some degree of chronic interstitial fibrosis. Review of Systems 2 Const: Denies: fever(s), chills, body aches or malaise ENMT: Denies: throat pain Card: Denies: chest pain, edema, pre-syncope or dyspnea on exertion Resp: Reports: dyspnea and non-productive cough; Denies: hemoptysis GI: Denies: abdominal pain, nausea, vomiting, diarrhea, constipation, hematochezia or melena : Denies: flank pain, difficulty urinating, urinary frequency or hematuria Musc: Denies: back pain, joint swelling or joint redness Skin/Breast: Denies: rash Neuro: Denies: headache(s) Medications/Allergies Home Medications Medication Instructions Recorded Confirmed Last Taken Type albuterol sulfate 90 mcg/actuation 1 puff inhalation Q6H PRN 04/15/24 04/15/24 Unknown History aerosol inhaler (Ventolin HFA) Shortness Of Breath Or Wheezing aspirin 81 mg tablet,delayed 81 mg PO DAILY 04/15/24 04/15/24 Unknown History release atorvastatin 40 mg tablet 40 mg PO BEDTIME 04/15/24 04/15/24 Unknown History clopidogrel 75 mg tablet 75 mg PO DAILY 04/15/24 04/15/24 Unknown History fluticasone 250 mcg-salmeterol 50 1 inh inhalation BID 04/15/24 04/15/24 Unknown History mcg/dose blistr powdr for inhalation furosemide 40 mg tablet 40 mg PO QAM 04/15/24 04/15/24 Unknown History metoprolol tartrate 25 mg tablet 25 mg PO BID 04/15/24 04/15/24 Unknown History nitroglycerin 0.4 mg sublingual See Rx Instructions .Route .COMPLEX 04/15/24 04/15/24 Unknown History tablet pantoprazole 40 mg tablet,delayed 40 mg PO BID 04/15/24 04/15/24 Unknown History release potassium chloride 20 mEq 40 meq PO DAILY 04/15/24 04/15/24 Unknown History tablet,extended release(part/cryst) sacubitril 24 mg-valsartan 26 mg 1 tab PO BID 04/15/24 04/15/24 Unknown History tablet (Entresto) sucralfate 100 mg/mL oral 10 ml PO Q12H 04/15/24 04/15/24 Unknown History suspension sulfamethoxazole 800 1 tab PO DAILY 04/15/24 04/15/24 Unknown History mg-trimethoprim 160 mg tablet Allergies Allergy/AdvReac Type Severity Reaction Status Date / Time No Known Allergies Allergy Verified 07/04/22 02:36 PFSH Acute 2 PFSH: Medical History COPD (chronic obstructive pulmonary disease) No pertinent past medical history Social History Substance/Drug Use: never Vitals/I&O/Wt Last Vital Signs Temp 97.6 F 04/15/24 13:56 Pulse 127 H 04/15/24 18:49 Resp 30 H 04/15/24 18:19 BP 160/91 04/15/24 18:49 Pulse Ox 95 04/15/24 18:49 O2 Del Method BiPAP 04/15/24 18:19 O2 Flow Rate 10 04/15/24 13:56 FiO2 32 04/15/24 17:57 04/15/24 04/15/24 04/15/24 06:59 14:59 22:59 Intake Total 150 / 150 Balance 150 / 150 Weight last 48 hrs Weight 61.689 kg Physical Exam 2 Const: COMMON NORMALS: patient oriented x3 and alert GENERAL APPEARANCE: c ooperative ORIENTATION/CONSCIOUSNESS: Yes awake HENMT: COMMON NORMALS: oropharynx normal Neck/C-Spine: COMMON NORMALS: no JVD Resp: EFFORT & INSPECTION: Yes tachypneic OTHER: BiPAP in place. Cardio: COMMON NORMALS: no JVD, regular rhythm, S1 normal heart sound present, S2 normal heart sound present and No murmurs present (Cardio) RHYTHM: regular rhythm HEART SOUNDS: S1 normal heart sound present and S2 normal heart sound present GI: COMMON NORMALS: Normal to inspection, nondistended, normoactive bowel sounds present, Soft to palpation and non-tender PALPATION: Yes Soft to palpation Extremity: COMMON NORMALS: no joint enlargement GENERAL: Yes edema Neuro: COMMON NORMALS: patient oriented x3 and moves all extremities S ENSORIUM/ORIENTATION: Yes alert Skin: COMMON NORMALS: no rashes or lesions noted GENERAL SKIN EXAM: no rashes or lesions noted Data 04/15/24 14:50 04/15/24 15:24 Micro: Microbiology 04/15/24 14:48 Blood Culture - Preliminary Blood SPECIMEN COLLECTED 04/15/24 14:50 Blood Culture - Preliminary Blood SPECIMEN COLLECTED A&P Assessment and plan (1) Acute respiratory failure: Acute respiratory failure with tachypnea, tachycardia, hypoxemia, saturating 86% despite 10 L supplemental oxygen. Interstitial pneumonia on review of CTA. No PE. Reviewed vitals, CBC, D-dimer, ABG, CMP, magnesium, CK, troponin, UA, chest x-ray, CTA, ED provider note, discussed with ED provider. As per discussion he has prior medications prescribed, without any visits on discharge, peril chart is noted, additional medical history found as above in HPI, additionally finding of negative HIV, positive PCP after recent hospitalization with suspected PCP pneumonia but could not be reached by phone to start on prescribed Bactrim. Severe PCP pneumonia with respiratory failure, requested Bactrim IV. Discussed with his risks including risk of ROBERT. Potassium abnormality. Continue empiric coverage with Levaquin as discussed with him. Respiratory viral panel was requested. Recent MRSA pneumonia, in addition to Levaquin will continue with linezolid. He additionally does report intermittent aspiration, ST evaluation requested as well as MBS. Continue oxygen support, BiPAP, RT assessment, wean oxygen support as tolerating. Clear liquid diet for now. Intensive care admission for now. Additionally history of severe cardiomyopathy, EF 17%, grade 4 diastolic dysfunction. With acute systolic and diastolic CHF exacerbation, switch to IV Lasix. Monitor electrolytes for risk of deficiency, reassess renal function with risk of ROBERT. (2) NSTEMI (non-ST elevated myocardial infarction): NSTEMI. Denies chest pain or pressure, but with respiratory failure. This may be demand ischemia secondary to respiratory failure, tachycardia, but with significant troponin elevation. He is a chronic smoker, does have history of CAD. Treatment for NSTEMI, anticoagulation, aspirin, continue beta-christopher, Plavix, statin. Echocardiogram requested as per discussion with him. Monitor Holter monitor with risk of arrhythmia. Follow-up chemistry. Check magnesium. Encourage smoking cessation. (3) Lactic acidosis: Severe lactic acidosis 9.5. Suspect secondary to respiratory failure, severe tachypnea. Additionally does have history of severe cardiomyopathy, EF 17%. (4) Transaminitis: Respiratory viral panel requested. Check hepatitis panel. (5) Smoking: Discussed smoking cessation with her for 4 minutes. He states has been cutting down but still smokes on and off. Encourage cessation. Discussed nicotine replacement he states will not needed but will let us know if he does. Continue to encourage cessation. Plan Acute systolic and diastolic CHF decompensation: As above. Discussed with his . Attestations 2 Medical Necessity Statement*: Admission over 2 midnights anticipated for assessment management of manage With underlying severe cardiomyopathy, EF 17%, grade 4 diastolic dysfunction, acute hypoxic respiratory failure, NSTEMI, additional comorbidities. Coding Level of Care Code Critical Care >/= 30 minutes Critical care time (in minutes): 55 The high probability of a clinically significant, sudden or life threatening deterioration, as referenced in this documentation, required my full and direct attention, intervention and personal management. The critical care time shown is in addition to time spent performing any reported separately billable procedures and includes the following: [x] Data and vital sign review and interpretation [x ] Patient assessment, examination and intervention [x] Medication orders and management [x] Patient/Family updates as able [x] Care Coordination and Documentation. Diagnoses Acute respiratory failure J96.00 NSTEMI (non-ST elevated myocardial infarction) I21.4 Lactic acidosis E87.20 Transaminitis R74.01 Smoking F17.200
[2024-04-15] MEDS: aspirin 325 mg Tablet PO (19:41)
[2024-04-15] MEDS: metoprolol tartrate 25 mg Tablet PO (19:41)
[2024-04-15] MEDS: pantoprazole DR 40 mg Tablet PO (19:41)
[2024-04-15] MEDS: budesonide 0.5 mg/2 mL Neb INHALATION (20:02)
[2024-04-15] MEDS: linezolid premix 600 MG/300 ML PREMIX 300 MG IV (21:17)
[2024-04-15] MEDS: atorvastatin 40 mg Tablet PO (21:17)
[2024-04-15 21:21] LABS: Adenovirus Not Detected (NOT DETECT); Chlamydia Pneumoniae Not Detected (NOT DETECT); Coronavirus 229E,HKU1,NL63,OC4 Not Detected (NOT DETECT); Human Metapneumovirus Not Detected (NOT DETECT); Human Rhinovirus/Enterovirus Not Detected (NOT DETECT); Influenza A Not Detected (NOT DETECT); Influenza A H1 Not Detected (NOT DETECT); Influenza A H1-2009 Not Detected (NOT DETECT); Influenza A H3 Not Detected (NOT DETECT); Influenza B Not Detected (NOT DETECT); Mycoplasma Pneumoniae Not Detected (NOT DETECT); Parainfluenza Virus Type 1 Not Detected (NOT DETECT); Parainfluenza Virus Type 2 Not Detected (NOT DETECT); Parainfluenza Virus Type 3 Not Detected (NOT DETECT); Parainfluenza Virus Type 4 Not Detected (NOT DETECT); Respiratory Syncytial Virus A Not Detected (NOT DETECT); Respiratory Syncytial Virus B Not Detected (NOT DETECT); SARS-COV-2 Not Detected (NOT DETECT)
[2024-04-15 22:20] LABS: Hepatitis A Antibody IgM Non-Reactive (Nonreactive); Hepatitis B Core IgM Non-Reactive (Nonreactive); Hepatitis B Surface Antigen Non-Reactive (Nonreactive); Hepatitis C Virus Antibody Non-Reactive (Nonreactive)
[2024-04-15 23:28] LABS: Troponin 5 6HR 657.2 ng/L (0-15); Troponin 5 6HR Delta 109.2 ng/L (0-12)
[2024-04-15] MEDS: SULFAMETHOXAZOLE TRIMETH IV (23:28)
[2024-04-15] MEDS: DEXTROSE 5% IV (23:28)
[2024-04-16] VITALS (59 sets, daily range): BP systolic 79–140; BP diastolic 54–92; PULSE 82–110; RESP 19–38; TEMP 35.8–37.1; O2SAT 85–100; BMI 21.4
[2024-04-16] MEDS: pantoprazole 40 mg SDV IVP ×2 (01:54→13:05)
[2024-04-16] MEDS: dexmedeTOMIDine 0.9 % NaCL 400 MCG/100 ML PREMIX IV (02:00)
[2024-04-16] MEDS: ipratropium-albuterol 3 mL Neb INHALATION ×4 (03:19→20:08)
[2024-04-16] MEDS: FUROsemide 10 mg/mL SDV 4mL 40 MG IVP ×2 (04:47→17:23)
--- NOTE | 2024-04-16 05:24 | PC.NURSE ---
Pt had an 8 beat run of vtach at 2045. Rhythm strip printed and put in patient chart.
--- NOTE | 2024-04-16 05:28 | PC.NURSE ---
Pt not tolerating Bipap throughout the night for more than 30 minutes at at time before becoming anxious and stating he cannot breath and needs to take the Bipap off. Dr Harris notified at 0100, new order for precedex drip to help pt tolerate Bipap.
[2024-04-16 05:38] LABS: Basophils % 0.1 %; Hematocrit 21.5 % (37-53); Lymphocytes # 1.1 10^3/uL (0.8-4.8); Lymphocytes % 7.4 %; Mean Corpuscular HGB Conc 29.8 g/dL (30-55); Mean Corpuscular Hemoglobin 24.6 pg (27-33); Mean Corpuscular Volume 82.7 fl (82-101); Mean Platelet Volume 9.3 fL (7.4-10.4); Monocytes # 0.5 10^3/uL (0.2-0.9); Monocytes % 3.2 %; Neutrophils # 12.61 10^3/uL (1.8-7.7); Neutrophils % 88.7 %; Nucleated Red Blood Cells % 0 %; Platelet Count 245 10^3/cmm (157-399); Red Cell Distribution Width 29.9 % (12.1-15.1); White Blood Count 14.22 10^3/uL (3.29-11.43)
[2024-04-16 06:12] LABS: Alanine Aminotransferase 432 U/L (0-41); Albumin Level 3.1 g/dL (3.5-5.2); Alkaline Phosphatase 117 U/L (40-130); Anion Gap 19.3 (5-19); Aspartate Amino Transferase 359 U/L (0-40); Blood Urea Nitrogen 40 mg/dL (8-23); Calcium 8.3 mg/dL (8.5-10.5); Carbon Dioxide 22 mmol/L (22-29); Chloride 100 mmol/L (98-107); Glomerular Filtration Rate 60.2 mL/min (90-130); Glucose 114 mg/dL (65-115); Magnesium 1.8 mg/dL (1.7-2.3); Osmolality Calculated 295 mOsm/kg (285-295); Potassium 4.3 mmol/L (3.5-5.1); Sodium 137 mmol/L (136-145); Total Bilirubin 0.7 mg/dL (0.15-1.2); Total Protein 6.1 g/dL (6.6-8.7)
[2024-04-16] MEDS: DEXTROSE 5% IV ×4 (06:56→22:30)
[2024-04-16] MEDS: SULFAMETHOXAZOLE TRIMETH IV ×4 (06:56→22:30)
[2024-04-16] MEDS: sucralfate 1 gm/10 mL Oral Liq UDC PO ×2 (06:56→17:23)
[2024-04-16] MEDS: budesonide 0.5 mg/2 mL Neb INHALATION ×2 (08:00→20:08)
--- NOTE | 2024-04-16 09:43 | PC.SLP ---
Nursing requested that ST hold off on bedside eval at this time. Pt was on BiPap and pt is to have an MBS completed at 10:30.
[2024-04-16] MEDS: magnesium sulfate premix 2 GM/50 ML PIGGYBACK IV (10:02)
[2024-04-16] MEDS: aspirin 325 mg Tablet PO (10:03)
[2024-04-16] MEDS: metoprolol tartrate 25 mg Tablet PO ×2 (10:03→17:23)
[2024-04-16] MEDS: linezolid premix 600 MG/300 ML PREMIX 300 MG IV ×2 (10:03→20:16)
[2024-04-16 16:53] LABS: Hematocrit 25.8 % (37-53)
[2024-04-16] MEDS: levofloxacin-dextrose 5 % 750 MG/150 ML PREMIX 100 MG IV (17:23)
--- NOTE | 2024-04-16 17:57 | FL_ITS ---
WS: [id number] Exam: FL barium swallow modifd [id number] Date/Time of Exam: 04/16/2024 11:24 AM Reason For Exam: Oropharyngeal dysphagia Fluoroscopy time: 1min [id number] minutes # of spot films: 0 Modified barium swallow study was performed in conjunction with the speech therapy service. Oropharyngeal phase of swallowing was grossly normal. The patient tolerated all consistencies of lynn um mixture foodstuffs without aspiration or penetration. The patient swallowed a barium tablet withou t difficulty. There was some hypomotility of the lower esophagus. FL/FL barium swallow modifd [id number] IMPRESSION: 1. No aspiration or penetration identified. A separate report with recommendations will follow from the speech therapy serv ice.
--- NOTE | 2024-04-16 18:26 | P.PN_ITS ---
Subjective 2 Subjective: Today he is feeling slightly better. He is breathing a little bit easier. Denies chest pain. Receiving blood due to noted anemia. Reports he has had an EGD and colonoscopy. Vitals/I&O/Wt Last Vital Signs Temp 98.4 F 04/16/24 10:31 Pulse 99 04/16/24 16:00 Resp 26 H 04/16/24 16:00 BP 140/92 04/16/24 16:00 Pulse Ox 97 04/16/24 16:00 O2 Del Method BiPAP 04/16/24 16:00 O2 Flow Rate 10 04/16/24 14:07 FiO2 40 04/16/24 16:00 04/16/24 04/16/24 04/16/24 06:59 14:59 22:59 Intake Total 769.91 / 1459.91 1524.640 / 1524.640 30.438 / 1555.078 Output Total 100 / 250 1400 / 1400 250 / 1650 Balance 669.91 / 1209.91 124.640 / 124.640 -219.562 / -94.922 Weight last 48 hrs Weight 58.5 kg Weight 57.5 kg Weight 61.689 kg Physical Exam 2 Const: COMMON NORMALS: patient oriented x3 and alert GENERAL APPEARANCE: c ooperative ORIENTATION/CONSCIOUSNESS: Yes awake HENMT: COMMON NORMALS: oropharynx normal Neck/C-Spine: COMMON NORMALS: no JVD Resp: EFFORT & INSPECTION: Yes tachypneic OTHER: On OxyMask Cardio: COMMON NORMALS: no JVD, regular rhythm, S1 normal heart sound present, S2 normal heart sound present and No murmurs present (Cardio) RHYTHM: regular rhythm HEART SOUNDS: S1 normal heart sound present and S2 normal heart sound present GI: COMMON NORMALS: Normal to inspection, nondistended, normoactive bowel sounds present, Soft to palpation and non-tender PALPATION: Yes Soft to palpation Extremity: COMMON NORMALS: no joint enlargement GENERAL: Yes edema Neuro: COMMON NORMALS: patient oriented x3 and moves all extremities S ENSORIUM/ORIENTATION: Yes alert Skin: COMMON NORMALS: no rashes or lesions noted GENERAL SKIN EXAM: no rashes or lesions noted Urinary Catheter Management: Tena: Cath Placed During This Visit: yes Reason for Continuing Indwelling Catheter: Accurate Measurement of Urinary Output in Critically Ill Patients Urinary Catheter Date of Insertion: 04/16/24 Urinary Catheter Time of Insertion: 09:58 Data 04/16/24 15:31 04/16/24 05:07 Micro: Microbiology 04/15/24 14:50 Blood Culture - Preliminary Blood NEGATIVE TO DATE 04/15/24 14:48 Blood Culture - Preliminary Blood NEGATIVE TO DATE 04/15/24 18:59 Gram Stain - Final Sputum - Expectorated Sputum Sputum Culture - Preliminary Gram Negative Rods 04/15/24 18:50 Occult Blood (FIT) - Final Stool - Stool Aspirate A&P Assessment and plan (1) Acute respiratory failure: Discussed with him regarding pneumocystis pneumonia. He states was not aware, did not start Bactrim. Discussed with him treatment with Bactrim as well as with recent MRSA pneumonia empiric antibiotic coverage for possible concomitant bacterial pneumonia including coverage for MRSA, risks with antibiotics. Monitor for risk including of kidney injury, potassium abnormality with Bactrim. Discussed with him additionally regarding troponin elevation, consideration of possible demand ischemia versus NSTEMI. Anticoagulation. Reassess chemistry. Continue oxygen support, intermittent BiPAP support, wean down as tolerating. With additional very low ejection fraction, 17%, at very high risk of complications, further respiratory decompensation, . Discussed with him. Place Tena catheter. Given overall condition, need for BiPAP support, and severity of underlying comorbidity continue treatment in ICU. Reviewed vitals, CBC, CMP, troponin, respiratory viral panel. Reviewed MBS, discussed with speech therapist. Discussed with case management. Severe PCP pneumonia with respiratory failure, requested Bactrim IV. Discussed with his risks including risk of ROBERT. Potassium abnormality. Continue empiric coverage with Levaquin as discussed with him. Respiratory viral panel was requested. Recent MRSA pneumonia, in addition to Levaquin will continue with linezolid. He additionally does report intermittent aspiration, ST evaluation requested as well as MBS. Continue oxygen support, BiPAP, RT assessment, wean oxygen support as tolerating. Clear liquid diet for now. Intensive care admission for now. Additionally history of severe cardiomyopathy, EF 17%, grade 4 diastolic dysfunction. With acute systolic and diastolic CHF exacerbation, switch to IV Lasix. Monitor electrolytes for risk of deficiency, reassess renal function with risk of ROBERT. (2) NSTEMI (non-ST elevated myocardial infarction): NSTEMI. He is chest pain-free. Discussed with him noted elevated troponin with moderate to severe elevation, up to 657 with positive delta. Discussed suspected demand ischemia versus possible NSTEMI. On anticoagulation. Noted to additionally GI bleeding with slow bleed with positive Hemoccult. Receiving RBC transfusion. Recheck hemoglobin with good response. Continue aspirin, anticoagulation had been discontinued. Reassess blood counts. Monitor on telemetry with risk of arrhythmia. Reassess limited TTE. Discussed with correctional case records supervisor. He had previously had a LifeVest due to risk of life-threatening arrhythmia, however, declined to wear it any further and returned the vest to supplier. Encourage smoking cessation. (3) Lactic acidosis: Reviewed bicarb, noted with improvement, lactic acid with resolution. On presentation severe lactic acidosis 9.5. Suspect secondary to respiratory failure, severe tachypnea. Additionally does have history of severe cardiomyopathy, EF 17%. (4) Transaminitis: Respiratory viral panel requested. Check hepatitis panel. (5) Smoking: Discussed smoking cessation with her for 4 minutes. He states has been cutting down but still smokes on and off. Encourage cessation. Discussed nicotine replacement he states will not needed but will let us know if he does. Continue to encourage cessation. Plan Acute systolic and diastolic CHF decompensation: As above. Discussed with his . Attestations 2 Medical Necessity Statement*: Continue admission for assessment management of severe PCP pneumonia, with underlying severe cardiomyopathy, EF 17%, grade 4 diastolic dysfunction, acute hypoxic respiratory failure, NSTEMI, additional comorbidities. Coding Level of Care Code Critical Care >/= 30 minutes Critical care time (in minutes): 35 The high probability of a clinically significant, sudden or life threatening deterioration, as referenced in this documentation, required my full and direct attention, intervention and personal management. The critical care time shown is in addition to time spent performing any reported separately billable procedures and includes the following: [x] Data and vital sign review and interpretation [x ] Patient assessment, examination and intervention [x] Medication orders and management [x] Patient/Family updates as able [x] Care Coordination and Documentation. Diagnoses Acute respiratory failure J96.00 NSTEMI (non-ST elevated myocardial infarction) I21.4 Lactic acidosis E87.20 Transaminitis R74.01 Smoking F17.200
--- NOTE | 2024-04-16 19:00 | PC.NURSE ---
Upon arrival at shift change precedex running at 0.2 mcg/kg/hr. Changed in MAR to reflect this.
[2024-04-16] MEDS: atorvastatin 40 mg Tablet PO (20:16)
[2024-04-16] MEDS: midodrine 5 mg TABLET PO (20:32)
[2024-04-16] MEDS: morphine 4 mg/mL SDV 1 mL 1 MG IVP (23:02)
[2024-04-17] VITALS (9 sets, daily range): BP systolic 82–92; BP diastolic 53–62; PULSE 90–96; RESP 23–33; TEMP 36.1; O2SAT 90–94
[2024-04-17] MEDS: pantoprazole 40 mg SDV IVP (01:06)
[2024-04-17] MEDS: morphine 4 mg/mL SDV 1 mL 1 MG IVP (01:06)
[2024-04-17] MEDS: ipratropium-albuterol 3 mL Neb INHALATION (01:57)
[2024-04-17] MEDS: FUROsemide 10 mg/mL SDV 4mL 40 MG IVP (03:34)
[2024-04-17 03:53] LABS: Basophils % 0.1 %; Eosinophils % 0.1 %; Hematocrit 21.6 % (37-53); Lymphocytes % 6.3 %; Mean Corpuscular HGB Conc 30.6 g/dL (30-55); Mean Corpuscular Hemoglobin 25.1 pg (27-33); Mean Corpuscular Volume 82.1 fl (82-101); Mean Platelet Volume 9.7 fL (7.4-10.4); Monocytes # 0.9 10^3/uL (0.2-0.9); Monocytes % 6.2 %; Neutrophils # 13.23 10^3/uL (1.8-7.7); Neutrophils % 86.8 %; Nucleated Red Blood Cells # 0.1 /100WBC; Nucleated Red Blood Cells % 0.4 %; Platelet Count 153 10^3/cmm (157-399); Red Blood Count 2.63 10^6/uL (3.85-5.65); Red Cell Distribution Width 26.5 % (12.1-15.1); White Blood Count 15.23 10^3/uL (3.29-11.43)
[2024-04-17] MEDS: norepinephrine 4 MG/250 ML BAG 45 MG IV (04:00)
[2024-04-17 04:10] LABS: Alanine Aminotransferase 419 U/L (0-41); Albumin Level 2.7 g/dL (3.5-5.2); Alkaline Phosphatase 127 U/L (40-130); Anion Gap 18.6 (5-19); Aspartate Amino Transferase 231 U/L (0-40); Blood Urea Nitrogen 41 mg/dL (8-23); Calcium 7.8 mg/dL (8.5-10.5); Carbon Dioxide 19 mmol/L (22-29); Chloride 94 mmol/L (98-107); Creatinine Clr Calc Pharmacy 46.3846; Globulin 2.6 g/dL (1.3-4.6); Glomerular Filtration Rate 54.9 mL/min (90-130); Glucose 93 mg/dL (65-115); Osmolality Calculated 276 mOsm/kg (285-295); Potassium 3.6 mmol/L (3.5-5.1); Sodium 128 mmol/L (136-145); Total Bilirubin 0.9 mg/dL (0.15-1.2); Total Protein 5.3 g/dL (6.6-8.7)
--- NOTE | 2024-04-17 04:18 | PM.EVENT ---
Event Note Event Note: Responded to CODE BLUE overhead, patient was already having CPR in progress. Code was being ran by Dr. Harris, respiratory therapist was at the head with [id number] ventilating the patient. They asked me to intubate the patient. Patient was unresponsive and no medication was given, patient was intubated on first try with 8.0 ET tube position 26 cm at the gums. I watched the tube go through the vocal cords and then heard breath sounds over both lungs and none over the epigastric area, there was good color change with the capnometry patient tolerated procedure well. Postintubation x-ray will be obtained.
--- NOTE | 2024-04-17 04:25 | PM.CCNAC ---
Critical Care Event Note The high probability of a clinically significant, sudden or life threatening deterioration of the patient's cardiopulmonary system(s) required my full and direct attention, intervention and personal management. The critical care time is as shown. This time is in addition to time spent performing any reported procedures but includes the following: [x] Data and vital sign review and interpretation [x] Patient assessment, examination and intervention [x] Documentation [x] Medication orders and management Critical Care Time Code activated: Yes Critical Care Time (min): 30 Additional information about critical care time: CODE BLUE NOTE Responded to CODE BLUE. Patient found to be in cardiac arrest. ACLS protocol followed. ROSC briefly obtained after approximately 7 minutes followed by recurrent PEA cardiac arrest. Refer to CODE BLUE documentation for specific details. Spoke with family over the phone after initial ROSC was obtained. Family contacted after patient had been down for approximately 20 minutes. Family stated patient would not want this done and requested CPR be stopped. CPR stopped. TOD 0421 on 04/17/2024. Coding Level of Care Code Acute Code for [facility] [place]
[2024-04-17 04:47] LABS: Glucose Point of Care 67 mg/dL (70-110)
[2024-04-17 04:47] LABS: Glucose Point of Care 78 mg/dL (70-110)
[2024-04-17 04:47] LABS: Glucose Point of Care 90 mg/dL (70-110)
--- NOTE | 2024-04-17 05:04 | PC.NURSE ---
At 0345 was in patient room and patient went unresponsive with agonal breathing, bradycardic with a faint pulse. Rapid response called. Started bagging patient. At 035 pt lost pulse, compressions started, code blue called. Achieved ROSC at 353, lost pulse again at 035, coded pt until 420. Time of called at 420.
--- NOTE | 2024-04-17 06:13 | PC.NURSE ---
Patient sent to [facility] [place]. Patient belongings with patient include shirt, bag with home meds, and wedding ring on left finger.
--- NOTE | 2024-04-17 06:57 | PC.NURSE ---
Adi time [id number]
--- NOTE | 2024-04-17 08:01 | PM.DDS ---
Discharge Providers DDS Date of Admission: 04/15/24 17:58 Date Summary Completed: 04/17/24 Attending Provider at Admission: Johan Wray Time of : 04:21 Attending Provider at Discharge: Johan SALEH Diagnoses Hospital Diagnoses (1) Acute respiratory failure: (2) NSTEMI (non-ST elevated myocardial infarction): (3) Lactic acidosis: (4) Transaminitis: (5) Smoking: Reason for Visit Reason for Visit Resp Distrss Brief History: 68-year-old gentleman with CAD, ischemic cardiomyopathy, anemia, COPD, smoking, ejection fraction 17%, grade 4 diastolic dysfunction, severe pulmonary hypertension, severe aortic stenosis, 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 He is found to have sinus tachycardia, lactic acid of 9.5, with tachypnea in the 30s-40s, as well as baseline troponin 548. Chest x-ray and CTA were obtained. Chest CTA without PE, with diffuse extensive interstitial lung disease, favoring presentation of interstitial pneumonia superimposed on some degree of chronic interstitial fibrosis. Summary Date and Time of Date of : 04/17/24 Time of : 04:21 Summary Summary: He was admitted to intensive care unit requiring BiPAP support, started on broad-spectrum antibiotic coverage given recent MRSA pneumonia with Levaquin, linezolid, as well as treatment for advanced pneumocystis pneumonia with Bactrim. Prognosis guarded given advanced respiratory illness and severe underlying comorbidities. Was started on treatment for NSTEMI but could not tolerate anticoagulation with worsening anemia. Required RBC transfusion and was continued on PPI. No overt aspiration penetration noted on MBS. Decompensated systolic and diastolic CHF treated with IV diuretic. Initially showed mild improvement and was able to come off BiPAP to heated high flow cannula. However, in the early childhood coordinator of 04/17 suffered cardiac arrest with ROSC transiently achieved after initial 7 minutes of ACLS. Upon clarification patient's goals of care with patient's family after recurrent cardiac arrest further resuscitative efforts were ceased. He at 4:21 AM. Additional Data Advance directives?: No Discharge Plan Discharge Patient Disposition: At Medical Facility Condition: Prescriptions: No Action furosemide 40 mg tablet 40 mg PO QAM atorvastatin 40 mg tablet 40 mg PO BEDTIME fluticasone propion-salmeterol 250-50 mcg/dose blister with device 1 inh INHALATION BID sucralfate 100 mg/mL suspension 10 ml PO Q12H clopidogrel 75 mg tablet 75 mg PO DAILY sulfamethoxazole-trimethoprim 800-160 mg tablet 1 tab PO DAILY aspirin 81 mg tablet,delayed release (DR/EC) 81 mg PO DAILY potassium chloride 20 mEq tablet,ER particles/crystals 40 meq PO DAILY pantoprazole 40 mg tablet,delayed release (DR/EC) 40 mg PO BID nitroglycerin 0.4 mg tablet, sublingual See Rx Instructions .ROUTE .COMPLEX Rx Instructions: DISSOLVE 1 TABLET UNDER THE TONGUE EVERY 5 MINUTES NEEDED FOR CHEST PAIN. DO NOT EXCEED A TOTAL OF 3 DOSES IN 15 MINUTES. albuterol sulfate [Ventolin HFA] 90 mcg/actuation HFA aerosol inhaler 1 puff INHALATION Q6H PRN (Reason: Shortness Of Breath Or Wheezing) metoprolol tartrate 25 mg tablet 25 mg PO BID Entresto 24-26 mg tablet 1 tab PO BID Referrals: Tyler Barrios MD [Physician] - 06/05/24 2:00 pm (If you cannot keep this appointment for some reason please call to cancel or reschedule. ) Patient Instructions: Opioid Safety DS Attestations Time Spent in /Discharge Care*: greater than 30 min Quality - AMI: AMI present?: No Quality - Stroke: CVA present?: No Quality - VTE: VTE present?: No Deep Vein Thrombosis/Pulmonary Embolism Present on Admission: No Coding Level of Care Code 81544 Total time (in minutes) for Discharge: 45 Diagnoses Acute respiratory failure J96.00 NSTEMI (non-ST elevated myocardial infarction) I21.4 Lactic acidosis E87.20 Transaminitis R74.01 Smoking F17.200
== END 2024-04-17 04:21 | disposition expired | DRG 177 ==
LOC: ER 15:54 → ICU 17:59
PROVIDERS: Admitting Provider Internal Medicine; Emergency Provider Family Medicine; Visit Provider Internal Medicine
DX: B59 Pneumocystosis (principal); I21.4 Non-ST elevation (NSTEMI) myocardial infarction; I50.43 Acute on chronic combined systolic (congestive) and diastolic (congestive) heart failure; J96.21 Acute and chronic respiratory failure with hypoxia; J44.0 Chronic obstructive pulmonary disease with (acute) lower respiratory infection; J44.1 Chronic obstructive pulmonary disease with (acute) exacerbation; E87.20 Acidosis, unspecified; J84.9 Interstitial pulmonary disease, unspecified; Z11.52 Encounter for screening for COVID-19; Z79.51 Long term (current) use of inhaled steroids; Z79.02 Long term (current) use of antithrombotics/antiplatelets; D64.9 Anemia, unspecified; I25.10 Atherosclerotic heart disease of native coronary artery without angina pectoris; I25.5 Ischemic cardiomyopathy; I27.20 Pulmonary hypertension, unspecified; I35.0 Nonrheumatic aortic (valve) stenosis; R00.0 Tachycardia, unspecified; J84.10 Pulmonary fibrosis, unspecified; I46.9 Cardiac arrest, cause unspecified; Z87.01 Personal history of pneumonia (recurrent)
CPT/HCPCS: 36415; 36416; 36430; 51702; 71045; 71275; 74230; 80051; 80053; 80074; 81001; 82274; 82330; 82550; 82805; 82962; 83605; 83735; 84484; 85014; 85018; 85025; 85378; 86850; 86900; 86920; 87040; 87070; 87077; 87186; 87205; 87486; 87581; 87633; 92523; 92610; 92611; 93005; 93306; 94640; 94660; 96365; 96372; 96375; 96376; 99285; 99291; J1100; J1650; J1940; J1956; J2020; J2270; J2470; J3475; J3490; J7060; J7626; P9040